=== PATIENT | female | born 1945 | race Caucasian/White ===

== ENCOUNTER 2018-06-27 12:51 | Day surgery (SDC) | payer MEDICARE, OTHER ==
[~2018-06-27 12:51] MED LIST: ALBU90OI61 INH; ASPI81EC PO; ATEN100; ATOR10; Aspirin EC81 MG PO; Benicar40 MG PO; CALCA500CH PO; CARV25 PO; CIPR500 PO; CLARITIN10 MG PO; CYAN500 PO; Coq-1030 MG PO; ESTRADIOL; FISH OIL 1,0001 EAC1 PO; GABA300 PO; GLIP10 PO; Gabapentin600 MG PO; HYDACE5 PO; HYDR1TAB94 PO; INSUASPI; INSULANPEN; INVOKANA300 MG PO; LOSARTAN POTAS100 MG PO; MELA3 PO; METF500; METF500 PO; NAPR250 PO; NAPR500; Nitrostat0.4 MG SL; Novolog100 UNIT/2; OLME20; OLME20 PO; OMEG1CAP30 PO; OMEPRAZOLE MAGN20 MG PO; PROG100; PROM25 PO; Prilosec Otc20 MG PO; ROSI4; RXHYDACE PO; SIMV40 PO; Super Calcium600 MG PO; UBID100 PO; VICTOZA PO; VITAMIN B-125000 MC2 PO; VITAMIN D3 PO; VITAMIN D32000 UNIT PO
--- NOTE | 2018-06-27 14:54 | NUR ---
06/27/18 1454 Rodo Egan LATE ENTRY: PER DR JAY VICENTE FOR PATEINT TO PROCEED WITH NURSE SEDATION. DR ZHANG AWARE OF THIS.
== END 2018-06-27 14:40 | disposition home or self-care (01) ==
LOC: ORSCSDS 12:51
PROVIDERS: Internal Medicine Gastroenterology
PROC: 0DBL8ZX Excision of Transverse Colon, Via Natural or Artificial Opening Endoscopic, Diagnostic (ICD-10-PCS; principal; 2018-06-27 14:15)
PROC: 0DBK8ZX Excision of Ascending Colon, Via Natural or Artificial Opening Endoscopic, Diagnostic (ICD-10-PCS; principal; 2018-06-27 14:15)
DX: Z12.11 Encounter for screening for malignant neoplasm of colon (principal); D12.2 Benign neoplasm of ascending colon; D12.3 Benign neoplasm of transverse colon; K64.8 Other hemorrhoids; J45.909 Unspecified asthma, uncomplicated; G47.33 Obstructive sleep apnea (adult) (pediatric); I10 Essential (primary) hypertension; E11.9 Type 2 diabetes mellitus without complications; K21.9 Gastro-esophageal reflux disease without esophagitis; Z79.899 Other long term (current) drug therapy; Z79.82 Long term (current) use of aspirin
CPT/HCPCS: 82947; 88305; J7120

== ENCOUNTER 2020-04-14 18:32 | Inpatient (IN) | payer OTHER ==
[~2020-04-14] VITALS: Ht 170.2 cm; Wt 68.0 kg
[~2020-04-14 18:32] MED LIST changes: -VITAMIN B-125000 MC2 PO; +Vitamin B-121000 MCG PO
[2020-04-14] MEDS ORDERED: ACET325 PO (19:00)
[2020-04-14] MEDS ORDERED: METF500 PO (19:00)
[2020-04-14] MEDS ORDERED: NOVOLIN 70100 UNIT/3 SC (19:24)
[2020-04-14] MEDS ORDERED: SYMBICORT 16010.2 GM INH (19:25)
[2020-04-14] MEDS ORDERED: OYSTER SHELL 51 EACH PO (19:26)
[2020-04-14 19:46] LABS: PCO2 Arterial 34.9 mmHg (35-45); pH Blood Arterial 7.42 (7.35-7.45)
[2020-04-14 19:48] LABS: Magnesium, Blood 1.3 mg/dL (1.6-2.4)
[2020-04-14 19:50] LABS: Alanine Aminotransfer (ALT/SGP 17 U/L (12-78); Albumin, Blood 2.7 g/dL (3.4-5.0); Albumin/Globulin Ratio 0.6 (0.8-1.8); Alk Phos 116 U/L (50-136); Anion Gap 9 mmol/L (6-16); Aspartate Aminotrans (AST/SGOT 20 U/L (12-37); Bilirubin, Total 0.2 mg/dL (0.1-1.0); Blood Urea Nitrogen 18 mg/dL (8-24); Bun/Creatinine Ratio 20.2 (12.0-20.0); CO2, Blood 22 mmol/L (21-32); Calcium, Blood 9.7 mg/dL (8.5-10.1); Chloride, Blood 106 mmol/L (98-108); Creatinine, Blood 0.89 mg/dL (0.40-1.00); Globulin, Blood 4.6 g/dL (2.2-4.0); Glomerular Filtration Rate >60 (60-); Glucose, Blood 206 mg/dL (70-99); Potassium, Blood 4.2 mmol/L (3.5-5.5); Sodium, Blood 137 mmol/L (136-145); Total Protein, Blood 7.3 g/dL (6.4-8.2)
[2020-04-14 20:47] LABS: Influenza A, PCR Negative (NEGATIVE); Influenza B, PCR Negative (NEGATIVE); Resp Syncytial Virus, PCR Negative (NEGATIVE); SARS-Cov-2 (COVID-19) PCR, MMC Negative (NEGATIVE)
[2020-04-14 21:01] LABS: BASOPHILS ABSOLUTE AUTO 0.03 K/mm3 (0.00-0.23); BASOPHILS PERCENT AUTO 0 % (0-2); EOSINOPHILS ABSOLUTE AUTO 0.34 K/mm3 (0.00-0.68); EOSINOPHILS PERCENT AUTO 5 % (0-6); Hematocrit 35.5 % (33.0-51.0); Hemoglobin 11.2 g/dL (11.5-16.0); IMMATURE GRAN ABSOLUTE AUTO 0.01 K/mm3 (0.00-0.10); IMMATURE GRAN PERCENT AUTO 0 % (0-1); LYMPHOCYTES ABSOLUTE AUTO 1.39 K/mm3 (0.84-5.20); LYMPHOCYTES PERCENT AUTO 20 % (21-46); MONOCYTES ABSOLUTE AUTO 0.73 K/mm3 (0.16-1.47); MONOCYTES PERCENT AUTO 11 % (4-13); Mean Corpuscular HGB 28.9 pg (26.0-34.0); Mean Corpuscular HGB Conc 31.5 g/dL (31.5-36.5); Mean Corpuscular Volume 92 fL (80-100); Mean Platelet Volume 9.2 fL (9.1-12.4); NEUTROPHILS ABSOLUTE AUTO 4.48 K/mm3 (1.96-9.15); NEUTROPHILS PERCENT AUTO 64 % (41-73); Platelet Count 289 K/mm3 (150-400); RDW Coefficient Variation 13.2 % (11.7-14.2); RDW Standard Deviation 44.1 fL (35.1-46.3); Red Blood Cell Count 3.87 M/mm3 (3.80-5.20); White Blood Cell Count 6.98 K/mm3 (4.00-11.30)
[2020-04-14] MEDS ORDERED: NOVOLIN 70100 UNIT/3 (22:23)
[2020-04-15 06:14] LABS: Hematocrit 33.2 % (33.0-51.0); Hemoglobin 10.8 g/dL (11.5-16.0); Mean Corpuscular HGB Conc 32.5 g/dL (31.5-36.5); Mean Corpuscular Volume 89 fL (80-100); Mean Platelet Volume 8.8 fL (9.1-12.4); Platelet Count 287 K/mm3 (150-400); RDW Coefficient Variation 13.1 % (11.7-14.2); RDW Standard Deviation 41.9 fL (35.1-46.3); Red Blood Cell Count 3.73 M/mm3 (3.80-5.20); White Blood Cell Count 8.63 K/mm3 (4.00-11.30)
[2020-04-15 06:35] LABS: Anion Gap 6 mmol/L (6-16); Blood Urea Nitrogen 13 mg/dL (8-24); CO2, Blood 26 mmol/L (21-32); Calcium, Blood 9.9 mg/dL (8.5-10.1); Chloride, Blood 110 mmol/L (98-108); Creatinine, Blood 0.76 mg/dL (0.40-1.00); Glomerular Filtration Rate >60 (60-); Glucose, Blood 147 mg/dL (70-99); Potassium, Blood 4.1 mmol/L (3.5-5.5); Sodium, Blood 142 mmol/L (136-145)
[2020-04-16 14:09] LABS: SARS COV-2 IGG AB Negative (Negative)
[2020-04-16 15:09] LABS: SARS COV-2 IGM AB Negative (Negative)
[2020-04-16] MEDS ORDERED: ATOVAQUONE PO (17:36)
[2020-04-16] MEDS ORDERED: PRED20 PO (17:36)
[2020-04-17 17:10] LABS: ANA DIRECT Negative (Negative)
== END 2020-04-16 18:34 | disposition home or self-care (01) | DRG 193 ==
LOC: ER 18:32 → MEDS 18:33 → ER 22:02 → MEDS 22:07
PROVIDERS: Emergency Medicine; Hospitalist; ADMIT Internal Medicine
DX: J18.9 Pneumonia, unspecified organism (principal); J96.21 Acute and chronic respiratory failure with hypoxia; D64.9 Anemia, unspecified; E11.9 Type 2 diabetes mellitus without complications; I16.0 Hypertensive urgency; E83.42 Hypomagnesemia; J84.89 Other specified interstitial pulmonary diseases; I10 Essential (primary) hypertension; Z20.828 Contact with and (suspected) exposure to other viral communicable diseases; E78.5 Hyperlipidemia, unspecified; Z79.4 Long term (current) use of insulin
CPT/HCPCS: 0241U; 36415; 36600; 71250; 80048; 80053; 82803; 82947; 83605; 83735; 84145; 85025; 85027; 85651; 86140; 86430; 87040; 87426; 87449; 94640; 94760; 94761; 96361; 96365; 96366; 99285-25; A9270; A9270-GY; C9803; J1650; J1815; J3370; J3475; J7030; J7050; J7120

== ENCOUNTER 2021-04-10 14:59 | Emergency (ER) | payer OTHER ==
[~2021-04-10] VITALS: Ht 170.2 cm; Wt 99.8 kg
[~2021-04-10 14:59] MED LIST changes: +ACET325 PO; +ATOVAQUONE PO; +NOVOLIN 70100 UNIT/3; +NOVOLIN 70100 UNIT/3 SC; +OYSTER SHELL 51 EACH PO; +PRED20 PO; +SYMBICORT 16010.2 GM INH
[2021-04-10 16:38] LABS: Source, Urine Clean Catch
[2021-04-10 16:43] LABS: Appearance, Urine Turbid (Clear); Blood, Urine 5+ (Neg); Color, Urine Amber (P-Yellow); Glucose Qualitative, Urine Neg (Neg); Ketones, Urine 1+ (Neg); Leukocyte Esterase, Urine 3+ (Neg); Nitrite, Urine Pos (Neg); Protein, Urine 4+ (Neg); Specific Gravity, Urine 1.025 (1.003-1.022); Urobilinogen, Urine 1+ (Normal)
[2021-04-10 16:55] LABS: Bilirubin, Urine 2+ (Neg)
[2021-04-10 17:02] LABS: Bacteria Many /hpf; Red Blood Cells, Urine TNTC /hpf (0-2); Squamous Epithelial Cells Mod /hpf (Few); White Blood Cells, Urine TNTC /hpf (0-5)
[2021-04-10] MEDS ORDERED: CEPH500 PO (17:12)
== END 2021-04-10 17:30 | disposition home or self-care (01) ==
LOC: ER 14:59
PROVIDERS: Physician Assistant
DX: N39.0 Urinary tract infection, site not specified (principal); I10 Essential (primary) hypertension; E11.9 Type 2 diabetes mellitus without complications; Z88.2 Allergy status to sulfonamides; Z88.0 Allergy status to penicillin; Z79.899 Other long term (current) drug therapy
CPT/HCPCS: 81001; 82947; 87086; 99283; A9270

== ENCOUNTER → 2021-09-30 | Outpatient (CLI) | payer OTHER ==
[~2021-09-30] MED LIST changes: +CEPH500 PO; +ELIQUIS5 M2 PO; +Flecainide Acet50 MG PO; +MYCO250 PO; +NOVOLOG FL100 UNIT/3 SC; +OZEMPIC0.25 MG/0. SC
== END | disposition home or self-care (01) ==
LOC: LAB SHORT 10:54
DX: L03.115 Cellulitis of right lower limb (principal); L03.116 Cellulitis of left lower limb
CPT/HCPCS: 87070; 87077; 87147; 87186; 87205

== ENCOUNTER 2022-02-04 12:19 | Day surgery (SDC) | payer OTHER ==
[~2022-02-04] VITALS: Ht 170.2 cm; Wt 91.1 kg
== END 2022-02-04 16:54 | disposition home or self-care (01) ==
LOC: ORSCSDS 12:19
PROVIDERS: Internal Medicine Gastroenterology
PROC: 0DBM8ZX Excision of Descending Colon, Via Natural or Artificial Opening Endoscopic, Diagnostic (ICD-10-PCS; principal; 2022-02-04 13:45)
PROC: 0DBK8ZX Excision of Ascending Colon, Via Natural or Artificial Opening Endoscopic, Diagnostic (ICD-10-PCS; principal; 2022-02-04 13:45)
PROC: 0DBH8ZX Excision of Cecum, Via Natural or Artificial Opening Endoscopic, Diagnostic (ICD-10-PCS; principal; 2022-02-04 13:45)
PROC: 0DBL8ZX Excision of Transverse Colon, Via Natural or Artificial Opening Endoscopic, Diagnostic (ICD-10-PCS; principal; 2022-02-04 13:45)
DX: Z12.11 Encounter for screening for malignant neoplasm of colon (principal); D12.0 Benign neoplasm of cecum; D12.2 Benign neoplasm of ascending colon; D12.3 Benign neoplasm of transverse colon; D12.4 Benign neoplasm of descending colon; Z86.010 Personal history of colon polyps; G47.33 Obstructive sleep apnea (adult) (pediatric); I48.91 Unspecified atrial fibrillation; J45.909 Unspecified asthma, uncomplicated; E11.22 Type 2 diabetes mellitus with diabetic chronic kidney disease; I12.9 Hypertensive chronic kidney disease with stage 1 through stage 4 chronic kidney disease, or unspecified chronic kidney disease; N18.30 Chronic kidney disease, stage 3 unspecified; K21.9 Gastro-esophageal reflux disease without esophagitis; Z79.01 Long term (current) use of anticoagulants; Z79.82 Long term (current) use of aspirin; Z79.84 Long term (current) use of oral hypoglycemic drugs; Z79.4 Long term (current) use of insulin; Z79.51 Long term (current) use of inhaled steroids; Z79.899 Other long term (current) drug therapy
CPT/HCPCS: 82947; 88305; J0330; J0461; J2405; J2704; J7120

== ENCOUNTER 2022-08-01 06:50 | Inpatient (IN) | payer OTHER ==
[~2022-08-01] VITALS: Ht 170.2 cm; Wt 89.3 kg
[2022-08-01 07:22] LABS: Source, Urine Clean Catch
[2022-08-01 07:29] LABS: Bilirubin, Urine Neg (Neg); Blood, Urine 3+ (Neg); Glucose Qualitative, Urine 4+ (Neg); Ketones, Urine 3+ (Neg); Leukocyte Esterase, Urine 2+ (Neg); Nitrite, Urine Neg (Neg); Protein, Urine 3+ (Neg); Urobilinogen, Urine NORM (Normal); pH, Urine 6.5 (5.0-8.0)
[2022-08-01 07:43] LABS: Albumin, Blood 4.3 g/dL (3.4-5.0); Albumin/Globulin Ratio 1.3 (0.8-1.8); Bilirubin, Total 0.6 mg/dL (0.1-1.0); Bun/Creatinine Ratio 20.5 (12.0-20.0); Calcium, Blood 9.9 mg/dL (8.5-10.1); Creatinine, Blood 0.83 mg/dL (0.40-1.00); Globulin, Blood 3.4 g/dL (2.2-4.0); Total Protein, Blood 7.7 g/dL (6.4-8.2)
[2022-08-01 07:44] LABS: Appearance, Urine Hazy (Clear); Color, Urine Yellow (P-Yellow)
[2022-08-01 07:47] LABS: Bacteria Mod /hpf; Mucus Mod (0-Heavy); Squamous Epithelial Cells Few /hpf (Few)
[2022-08-01 08:03] LABS: BASOPHILS ABSOLUTE AUTO 0.06 K/mm3 (0.00-0.23); BASOPHILS PERCENT AUTO 0 % (0-2); EOSINOPHILS ABSOLUTE AUTO 0.01 K/mm3 (0.00-0.68); EOSINOPHILS PERCENT AUTO 0 % (0-6); Hematocrit 35.2 % (33.0-51.0); IMMATURE GRAN ABSOLUTE AUTO 0.04 K/mm3 (0.00-0.10); IMMATURE GRAN PERCENT AUTO 0 % (0-1); LYMPHOCYTES ABSOLUTE AUTO 0.96 K/mm3 (0.84-5.20); LYMPHOCYTES PERCENT AUTO 6 % (21-46); MONOCYTES ABSOLUTE AUTO 0.55 K/mm3 (0.16-1.47); MONOCYTES PERCENT AUTO 4 % (4-13); Mean Corpuscular HGB 25.5 pg (26.0-34.0); Mean Corpuscular HGB Conc 31.3 g/dL (31.5-36.5); Mean Corpuscular Volume 82 fL (80-100); Mean Platelet Volume 9.9 fL (9.1-12.4); NEUTROPHILS ABSOLUTE AUTO 13.49 K/mm3 (1.96-9.15); NEUTROPHILS PERCENT AUTO 89 % (41-73); Platelet Count 286 K/mm3 (150-400); RDW Coefficient Variation 14.4 % (11.7-14.2); Red Blood Cell Count 4.32 M/mm3 (3.80-5.20); White Blood Cell Count 15.11 K/mm3 (4.00-11.30)
[2022-08-01 09:48] LABS: U Amphetamine Screen Not Detected; U Barbituate Screen Not Detected; U Benzodiazapine Screen Not Detected; U Buprenorphine Screen Not Detected; U Cannabinoids Screen Not Detected; U Cocaine Screen Not Detected; U Methadone Screen Not Detected; U Methamphetamine Screen Not Detected; U Opiates Screen Not Detected; U Oxycodone Screen Not Detected; U Phencyclidine Screen Not Detected; U Propoxyphene Screen Not Detected
[2022-08-01 12:00] VITALS: BP 172/68
[2022-08-01] MEDS ORDERED: ELIQUIS5 M2 PO (12:45)
[2022-08-01] MEDS ORDERED: Flecainide Acet50 MG PO (12:45)
[2022-08-01] MEDS ORDERED: CARV6.25 PO (12:45)
[2022-08-01] MEDS ORDERED: GABA100 PO (12:46)
[2022-08-01] MEDS ORDERED: METF500 PO (12:47)
[2022-08-01] MEDS ORDERED: OMEP20ER PO (12:47)
[2022-08-01] MEDS ORDERED: MYCO250 PO (12:47)
[2022-08-01] MEDS ORDERED: INSULANI SC (12:47)
[2022-08-01] MEDS ORDERED: OZEMPIC0.25 MG/01 SC (12:48)
[2022-08-01] MEDS ORDERED: ZOCOR20 MG PO (12:49)
[2022-08-01] MEDS ORDERED: INSULANPEN SC (12:49)
[2022-08-01 14:12] LABS: Anti-Xa UFH, PHA Monitoring 0.6 IU/mL; International Normalized Ratio 1.04; Prothrombin Time Results 10.9 Sec (9.7-11.5)
[2022-08-01 15:00] VITALS: BP 173/60
[2022-08-01 16:00] VITALS: BP 160/79
--- NOTE | 2022-08-01 17:41 | NUR ---
SHIFT SUMMARY; ASSUMED CARE FROM ED. CURLED UP ON SIDE IN POSITION. OPENS EYES TO VERBAL STIMULI AND MOANS WHEN TOUCHED. PUREWICK IN PLACE, NS INFUSING AT 200ML/HR X2 BAGS, FAMILY AT BEDSIDE. HEPARIN STARTED PER ORDERS INFUSING AT 15UNITS/KG. ECHO COMPLETED. WAKES EASIER TO VERBAL STIMULI LATE IN SHIFT. ABLE TO ANSWER QUESTIONS. STATES IS AT [facility] AND FELL LAST NIGHT, DIFFICULTY CONCENTRATING. BED ALARM ON, SIDE RAILS X3 UP FOR SAFTEY. WILL CONTINUE TO MONITOR AND TREAT UNTIL CHANGE OF SHIFT.
[2022-08-01 19:31] VITALS: BP 130/97
[2022-08-01 23:23] VITALS: BP 158/65
[2022-08-02] VITALS (9 sets, daily range): BP systolic 115–178; BP diastolic 43–129
[2022-08-02 04:33] LABS: BASOPHILS ABSOLUTE AUTO 0.04 K/mm3 (0.00-0.23); BASOPHILS PERCENT AUTO 0 % (0-2); EOSINOPHILS ABSOLUTE AUTO 0.01 K/mm3 (0.00-0.68); EOSINOPHILS PERCENT AUTO 0 % (0-6); Hematocrit 34.1 % (33.0-51.0); Hemoglobin 10.4 g/dL (11.5-16.0); IMMATURE GRAN ABSOLUTE AUTO 0.08 K/mm3 (0.00-0.10); IMMATURE GRAN PERCENT AUTO 1 % (0-1); LYMPHOCYTES ABSOLUTE AUTO 1.11 K/mm3 (0.84-5.20); LYMPHOCYTES PERCENT AUTO 6 % (21-46); MONOCYTES ABSOLUTE AUTO 0.94 K/mm3 (0.16-1.47); MONOCYTES PERCENT AUTO 5 % (4-13); Mean Corpuscular HGB 25.3 pg (26.0-34.0); Mean Corpuscular HGB Conc 30.5 g/dL (31.5-36.5); Mean Corpuscular Volume 83 fL (80-100); NEUTROPHILS ABSOLUTE AUTO 15.57 K/mm3 (1.96-9.15); NEUTROPHILS PERCENT AUTO 88 % (41-73); Platelet Count 285 K/mm3 (150-400); RDW Coefficient Variation 14.6 % (11.7-14.2); RDW Standard Deviation 43.6 fL (35.1-46.3); Red Blood Cell Count 4.11 M/mm3 (3.80-5.20); White Blood Cell Count 17.75 K/mm3 (4.00-11.30)
[2022-08-02 04:55] LABS: Calcium, Blood 8.8 mg/dL (8.5-10.1); Creatinine, Blood 0.83 mg/dL (0.40-1.00)
--- NOTE | 2022-08-02 06:16 | NUR ---
SHIFT SUMMARY PT IS A&OX4, BUT LETHARGIC. SHE CAN BE WOKEN UP AND ANSWERS EVERY QUESTION APPROPRIATELY BUT SHE DOES NOT STAY AWAKE LONG, IS SLOW TO RESPOND, AND CAN NOT EXPRESS HER NEEDS WITHOUT BEING ASKED. PT WAS HAVING SOME N/V THIS SHIFT AND WAS MEDICATED WITH REGLAN. SHE HAS NOT HAD ANY VOMITING SINCE. SHE C/O NAUSEA ONCE SINCE BEING MEDICATED. SHE HAS HAD ONE SMALL LOOSE STOOL AND HAS A PURWICK USED FOR HER INC VOIDS. PT HAS BEEN SLEEPING MAJORITY OF THE SHIFT AND HAS BEEN HYPERTENSIVE. THIS SHIFT SHE STARTED HAVING MORE RUNS OF BIGEMENY AND TRIGEMENY. TROPONINS ARE STILL TRENDING UP AND HAVE NOT PEAKED. SHE IS ON RA AND DENIES ANY SOB. SHE HAS A LOW GRADE FEVER AND HAD BEEN GETTING COOL RAGS, ICE PACKS, NO BLANKETS, AND A FAN BLOWING ON HER. BED ALARM ON, CALL LIGHT IN REACH, AND BED IN LOW. SEE NOTES FOR ANY UPDATES.
[2022-08-02 11:19] LABS: Base Excess Venous -2.8 mmol/L; Bicarbonate Venous 22.5 mmol/L (24.0-30.0); PCO2 Venous 33.5 mmHg (38-42); pH Blood Venous 7.42 (7.34-7.37)
[2022-08-02 13:09] LABS: Adenovirus Not Detected (NOT DETECT); Bordetella pertussis Not Detected (NOT DETECT); Chlamydophila pneumoniae Not Detected (NOT DETECT); Coronavirus 229E Not Detected (NOT DETECT); Coronavirus HKU1 Not Detected (NOT DETECT); Coronavirus NL63 Not Detected (NOT DETECT); Coronavirus OC43 Not Detected (NOT DETECT); Human Metapneumovirus Not Detected (NOT DETECT); Human Rhinovirus/Enterovirus Not Detected (NOT DETECT); Influenza A/2009-H1 Not Detected (NOT DETECT); Influenza A/H1 Not Detected (NOT DETECT); Influenza A/H3 Not Detected (NOT DETECT); Influenza B Not Detected (NOT DETECT); Mycoplasma pneumoniae Not Detected (NOT DETECT); Parainfluenza Virus 1 Not Detected (NOT DETECT); Parainfluenza Virus 2 Not Detected (NOT DETECT); Parainfluenza Virus 3 Not Detected (NOT DETECT); Parainfluenza Virus 4 Not Detected (NOT DETECT); Respiratory Syncytial Virus Not Detected (NOT DETECT); SARS-Cov-2 (COVID-19), BioFire Not Detected (NOT DETECT)
[2022-08-02 13:58] LABS: Source, Urine Foley catheter
[2022-08-02 14:04] LABS: Appearance, Urine Hazy (Clear); Bilirubin, Urine Neg (Neg); Blood, Urine 5+ (Neg); Color, Urine Yellow (P-Yellow); Glucose Qualitative, Urine 4+ (Neg); Ketones, Urine 2+ (Neg); Leukocyte Esterase, Urine Neg (Neg); Nitrite, Urine Neg (Neg); Protein, Urine 3+ (Neg); Specific Gravity, Urine 1.025 (1.003-1.022); Urobilinogen, Urine NORM (Normal)
[2022-08-02 14:29] LABS: Free Thyroxine 1.17 ng/dL (0.70-1.60)
[2022-08-02 14:31] LABS: Triiodothyronine, Free 1.51 pg/mL (2.18-3.98)
[2022-08-02 15:20] LABS: Amorphous Light (0-Heavy); Bacteria Many /hpf; Hyaline Casts 0-2 /lpf (0-2); Mucus Light (0-Heavy); Red Blood Cells, Urine TNTC /hpf (0-2); Squamous Epithelial Cells Rare /hpf (Few); White Blood Cells, Urine 0-2 /hpf (0-5)
--- NOTE | 2022-08-02 17:22 | NUR ---
SHIFT SUMMARY; ASSUMED CARE AT 0700. LETHARGIC AND DIFFICULT TO ARROUSE DURING SHIFT. DOES NOT FOLLOW INSTRUCTIONS, WHEN ASKED TO RAISE LEFT ARM RAISES RIGHT. MRI AND CTA TODAY. WAKES AT TIMES OFF AND ON AND ANSWERS SOME QUESTIONS, WHEN ASKED IF CAN STATE NAME SAYS "NO". ELI PLACED TODAY. HEPARIN INFUSING AT 15UNITS/KG. EVALUATED BY CARDIOLOGY TODAY. PO MEDS GIVEN IN AM CRUSHED IN APPLESAUCE, UNABLE TO GIVE PO THE REST OF DAY, WILL NOT FOLLOW INSTRUCTIONS TO SWALLOW. ATTEMPTED TO BE EVALUATED BY SPEECH THERAPY, WILL NOT COOPERATE WITH EVAL. NPO UNTIL CAN STAY AWAKE FOR EVALUATION. MOVES LEGS AND ARMS WHEN SLEEPING BUT WILL NOT FOR ASSESMENT. Q2 TURNS, 1L 02 VIA NC, INSULIN PER EMAR. WILL CONTINUE TO MONITOR AND TREAT UNTIL CHANGE OF SHIFT.
[2022-08-03 03:27] VITALS: BP 125/56
--- NOTE | 2022-08-03 06:13 | NUR ---
SHIFT SUMMARY PT IS A&OX4, VERY WITHDRAWN, AND HAS TO BE PRESSED TO COMMUNICATE. SHE IS SLOW TO RESPOND, SHORT WITH HER PHRASES, AND SOFTLY SPOKEN. SHE ANSWERS QUESTIONS APPROPRIATELY AND HAS NOT USED HER CALL LIGHT TO EXPRESS CONCERNS. THE PT IS A Q2 HR TURN, HAS A ELI DRAINING TO GRAVITY, AND HAS BEEN INC OF BOWEL. PT IS ON ROOM AIR W/ SP02>90% AND SHE DENIES SOB. ON TELE THE PT IS SR 70 S-80 S W/ PVC S AND SHE DENIES ANY CHEST PAIN. SHE HAS BEEN FIGHTING A LOW GRADE FEVER AND WAS GIVEN TYLENOL. PT IS ON CENTRAL MONITORING, HAS THE BED ALARM ON, THREE SIDE RAILS UP, BED IS IN LOW, AND CALL LIGHT IS IN REACH. I WILL CONTINUE TO MONITOR UNTIL SHIFT REPORT IS GIVEN TO THE ONCOMING SHIFT RN. SEE NOTES FOR ANY UPDATES.
[2022-08-03 07:30] VITALS: BP 111/46
[2022-08-03 07:57] LABS: BASOPHILS ABSOLUTE AUTO 0.05 K/mm3 (0.00-0.23); BASOPHILS PERCENT AUTO 1 % (0-2); EOSINOPHILS ABSOLUTE AUTO 0.12 K/mm3 (0.00-0.68); EOSINOPHILS PERCENT AUTO 1 % (0-6); Hematocrit 27.9 % (33.0-51.0); Hemoglobin 8.9 g/dL (11.5-16.0); IMMATURE GRAN ABSOLUTE AUTO 0.04 K/mm3 (0.00-0.10); IMMATURE GRAN PERCENT AUTO 0 % (0-1); LYMPHOCYTES ABSOLUTE AUTO 2.49 K/mm3 (0.84-5.20); LYMPHOCYTES PERCENT AUTO 23 % (21-46); MONOCYTES ABSOLUTE AUTO 1.04 K/mm3 (0.16-1.47); MONOCYTES PERCENT AUTO 10 % (4-13); Mean Corpuscular HGB 25.9 pg (26.0-34.0); Mean Corpuscular HGB Conc 31.9 g/dL (31.5-36.5); Mean Corpuscular Volume 81 fL (80-100); Mean Platelet Volume 10.5 fL (9.1-12.4); NEUTROPHILS ABSOLUTE AUTO 7.24 K/mm3 (1.96-9.15); NEUTROPHILS PERCENT AUTO 66 % (41-73); Platelet Count 242 K/mm3 (150-400); RDW Coefficient Variation 14.8 % (11.7-14.2); Red Blood Cell Count 3.43 M/mm3 (3.80-5.20); White Blood Cell Count 10.98 K/mm3 (4.00-11.30)
[2022-08-03 08:22] LABS: Bun/Creatinine Ratio 26.2 (12.0-20.0); Calcium, Blood 8.7 mg/dL (8.5-10.1); Creatinine, Blood 1.26 mg/dL (0.40-1.00); Potassium, Blood 3.2 mmol/L (3.5-5.5)
[2022-08-03 09:23] LABS: BASOPHILS ABSOLUTE AUTO 0.04 K/mm3 (0.00-0.23); BASOPHILS PERCENT AUTO 0 % (0-2); EOSINOPHILS ABSOLUTE AUTO 0.15 K/mm3 (0.00-0.68); EOSINOPHILS PERCENT AUTO 1 % (0-6); Hematocrit 28.3 % (33.0-51.0); Hemoglobin 8.8 g/dL (11.5-16.0); IMMATURE GRAN ABSOLUTE AUTO 0.05 K/mm3 (0.00-0.10); IMMATURE GRAN PERCENT AUTO 1 % (0-1); LYMPHOCYTES PERCENT AUTO 19 % (21-46); MONOCYTES ABSOLUTE AUTO 1.12 K/mm3 (0.16-1.47); MONOCYTES PERCENT AUTO 10 % (4-13); Mean Corpuscular HGB 25.2 pg (26.0-34.0); Mean Corpuscular HGB Conc 31.1 g/dL (31.5-36.5); Mean Corpuscular Volume 81 fL (80-100); Mean Platelet Volume 10.3 fL (9.1-12.4); NEUTROPHILS ABSOLUTE AUTO 7.59 K/mm3 (1.96-9.15); NEUTROPHILS PERCENT AUTO 69 % (41-73); Platelet Count 247 K/mm3 (150-400); RDW Coefficient Variation 14.7 % (11.7-14.2); RDW Standard Deviation 42.2 fL (35.1-46.3); Red Blood Cell Count 3.49 M/mm3 (3.80-5.20); White Blood Cell Count 11.05 K/mm3 (4.00-11.30)
--- NOTE | 2022-08-03 09:55 | NUR ---
AM NOTES: PT WAS MORE ALERT AND RESPONSIVE TODAY PER FAMILY AT THE BEDSIDE. PT WAS ABLE TO COOPERATIVE WITH SPEECH THERAPIST DIET RESUMED TO REGULAR THIN LIQUIDS, ABLE TO TAKE PILLS WHOLE WITH WATER. PT STILL SLOW TO RESPOND CONVERSIVE BUT CAN GET FIXATED ON THINGS MOSTLY TO HER RIGHT SIDE. VITALS STABLE. PT DENIES ANY CHEST PAIN/PRESSURE. REPOSITIONED FOR COMFORT. TO DC ELI TODAY PER DR ERNANDEZ. NO ISSUES AT THIS TIME, WILL CONTINUE TO MONITOR
[2022-08-03 11:36] VITALS: BP 100/45; BP 98/47
[2022-08-03 16:12] VITALS: BP 103/50
--- NOTE | 2022-08-03 18:37 | NUR ---
PT SUMMARY: SEE PREVIOUS NOTE. NO ACUTE CHANGE FOR THE REST OF THE SHIFT. PT HAS BEEN CONSISTENTLY ALERT AND TALKING WITH THE FAMILY AT THE BEDSIDE PT COULDNT REMEMBER MUCH OF WHAT HAPPENED YESTERDAY BUT SHE KNOWS SHE WAS OUT OF IT. PT DENIES ANY CHEST PAIN/PRESSURE, VITALS STABLE. HAS SOME DISCOMFORT FROM LAYING IN BED REPOSITIONED FOR COMFORT. PT HAS BEEN TOLERATING DIET FEEDING HERSELF WITH NO ISSUES. BED BATH PROVIDED FOR THE SHIFT, ELI WAS DISCONTINUED PUREWICK IN PLACE. DR CABRERA CAME BY TO RE EVAL PT, WOULD LIKE TO WAIT ANOTHER DAY OR TWO UNTIL PT TOTALLY CLEARS UP FROM INFECTION THEN RE EVAL AGAIN FOR ANGIO. FAMILY IS AWARE OF THE PLAN OF CARE. HEP GTT INCREASED TO 15U/KG/HR. NO OTHER ISSUES ENCOUNTERED. CALL LIGHTS IN REACH WILL REPORT TO ONCOMING SHIFT
[2022-08-03 21:31] VITALS: BP 117/65
[2022-08-04] VITALS (7 sets, daily range): BP systolic 124–159; BP diastolic 36–62
[2022-08-04 06:20] LABS: BASOPHILS ABSOLUTE AUTO 0.03 K/mm3 (0.00-0.23); BASOPHILS PERCENT AUTO 0 % (0-2); EOSINOPHILS ABSOLUTE AUTO 0.21 K/mm3 (0.00-0.68); EOSINOPHILS PERCENT AUTO 3 % (0-6); Hematocrit 27.3 % (33.0-51.0); Hemoglobin 8.5 g/dL (11.5-16.0); IMMATURE GRAN ABSOLUTE AUTO 0.02 K/mm3 (0.00-0.10); IMMATURE GRAN PERCENT AUTO 0 % (0-1); LYMPHOCYTES ABSOLUTE AUTO 1.45 K/mm3 (0.84-5.20); LYMPHOCYTES PERCENT AUTO 20 % (21-46); MONOCYTES PERCENT AUTO 11 % (4-13); Mean Corpuscular HGB 25.7 pg (26.0-34.0); Mean Corpuscular HGB Conc 31.1 g/dL (31.5-36.5); Mean Corpuscular Volume 83 fL (80-100); Mean Platelet Volume 10.4 fL (9.1-12.4); NEUTROPHILS ABSOLUTE AUTO 4.88 K/mm3 (1.96-9.15); NEUTROPHILS PERCENT AUTO 66 % (41-73); Platelet Count 229 K/mm3 (150-400); RDW Coefficient Variation 14.7 % (11.7-14.2); RDW Standard Deviation 43.2 fL (35.1-46.3); Red Blood Cell Count 3.31 M/mm3 (3.80-5.20); White Blood Cell Count 7.39 K/mm3 (4.00-11.30)
[2022-08-04 06:35] LABS: Bun/Creatinine Ratio 28.1 (12.0-20.0); Calcium, Blood 8.7 mg/dL (8.5-10.1); Creatinine, Blood 1.21 mg/dL (0.40-1.00); Potassium, Blood 3.5 mmol/L (3.5-5.5)
--- NOTE | 2022-08-04 06:56 | NUR ---
SHIFT SUMMARY PATIENT ALERT AND ORIENTED X 3-4. HAD OCCASIONAL CONUSION AND FORGETFULNESS OVERNIGHT BUT WAS ABLE TO ANSWER ALL ORIENTATION QUESTIONS APPROPRIATELY AND KNEW WHAT MEDICATIONS SHE TYPICALLY TOOK AT HOME. VITAL SIGNS STABLE, PATIENT ON ROOM AIR, SINUS ON TELE. PATIENT DID NOT VOID OVERNIGHT, BLADDER SCAN SHOWED 901 ML. PATIENT STATED THAT SHE FELT LIKE SHE NEEDED TO URINATE AND WANTED SOME TIME TO TRY BEFORE BEING STRAIGHT CATHED. WILL CONTINUE TO MONITOR. CALL LIGHT WITHIN REACH.
--- NOTE | 2022-08-04 13:07 | NUR ---
Patient is lying in bed and alert. Patient's spouse, Alejandro, is bedside and helps fill in details for the patient as she shares about their solid friend, family and L[employer] rao support. They explain about all the prayers and encouragent they recieved since her hospital stay began. They are friendly and embossed or impressed lettering painter conversation and are easily encouraged by the conversations centered around their rao and prayer. I provide both as well and gentle employee counselor, regarding emotionl/mental/spiritual coping strategies for dealing with medical issues. I will continue to remain avaialble to pateint and family.
--- NOTE | 2022-08-04 18:23 | NUR ---
SHIFT SUMMARY ASSUMED CARE OF PT AT 0700 THIS AM. BLADDER SCAN FOR >1000ML, DR ERNANDEZ AT BEDSIDE. PT ST. CATH FOR 1100ML. PT WORKED WITH PT/OT, ABLE TO WALK FROM BED TO DOOR WITH FWW. PT UNABLE TO VOID MORE THAN 100ML AT A TIME ON BSC. BLADDER SCAN THIS EVENING 607ML, DR LOERA NOTIFIED AND NEW ORDERS RECEIVED. SEE DOCUMENTED VS AND ASSESSMENT. PLAN TO DC IN THENEXT 24 HRS TO SNF. PT'S SPOUSE AT BEDSIDE TODAY AND UPDATED ON PT'S CONDITION AND CARE PLAN. PT ABLE TO USE CALL LIGHT FOR NEEDS, CALL LIGHT IN REACH, WILL CONTINUE TO MONITOR AND GIVE REPORT TO NOC SHIFT RN.
[2022-08-04 22:49] LABS: Source, Urine Foley catheter
[2022-08-04 23:06] LABS: Bilirubin, Urine Neg (Neg); Blood, Urine 4+ (Neg); Glucose Qualitative, Urine 2+ (Neg); Ketones, Urine Neg (Neg); Leukocyte Esterase, Urine Neg (Neg); Nitrite, Urine Neg (Neg); Protein, Urine Neg (Neg); Specific Gravity, Urine 1.015 (1.003-1.022); Urobilinogen, Urine NORM (Normal)
[2022-08-04 23:12] LABS: Color, Urine Pale Yellow (P-Yellow)
[2022-08-04 23:13] LABS: Appearance, Urine Hazy (Clear); Bacteria Mod /hpf; Mucus Light (0-Heavy); Squamous Epithelial Cells Rare /hpf (Few); White Blood Cells, Urine 0-2 /hpf (0-5)
[2022-08-05 03:20] VITALS: BP 161/62
[2022-08-05 03:39] LABS: BASOPHILS ABSOLUTE AUTO 0.04 K/mm3 (0.00-0.23); BASOPHILS PERCENT AUTO 1 % (0-2); EOSINOPHILS PERCENT AUTO 3 % (0-6); Hematocrit 27.6 % (33.0-51.0); Hemoglobin 8.7 g/dL (11.5-16.0); IMMATURE GRAN ABSOLUTE AUTO 0.02 K/mm3 (0.00-0.10); IMMATURE GRAN PERCENT AUTO 0 % (0-1); LYMPHOCYTES ABSOLUTE AUTO 1.37 K/mm3 (0.84-5.20); LYMPHOCYTES PERCENT AUTO 19 % (21-46); MONOCYTES ABSOLUTE AUTO 0.85 K/mm3 (0.16-1.47); MONOCYTES PERCENT AUTO 12 % (4-13); Mean Corpuscular HGB 25.9 pg (26.0-34.0); Mean Corpuscular HGB Conc 31.5 g/dL (31.5-36.5); Mean Corpuscular Volume 82 fL (80-100); Mean Platelet Volume 10.2 fL (9.1-12.4); NEUTROPHILS ABSOLUTE AUTO 4.68 K/mm3 (1.96-9.15); NEUTROPHILS PERCENT AUTO 65 % (41-73); Platelet Count 229 K/mm3 (150-400); RDW Coefficient Variation 14.9 % (11.7-14.2); RDW Standard Deviation 43.7 fL (35.1-46.3); Red Blood Cell Count 3.36 M/mm3 (3.80-5.20); White Blood Cell Count 7.16 K/mm3 (4.00-11.30)
[2022-08-05 04:03] LABS: Bun/Creatinine Ratio 27.2 (12.0-20.0); Calcium, Blood 9.3 mg/dL (8.5-10.1); Creatinine, Blood 0.92 mg/dL (0.40-1.00); Potassium, Blood 3.8 mmol/L (3.5-5.5)
--- NOTE | 2022-08-05 06:05 | NUR ---
SHIFT SUMMARY PATIENT ALERT AND OREINTED X3-4, OCCASIONALLY CONFUSED AND FORGETFUL. SHE HAS HAD NO COMPLAINTS OF PAIN OR SHORTNESS OF BREATH. VITAL SIGNS STABLE. PATIENT SINUS RHYTHM WITH PVCS ON TELEMETRY. PATIENT CONTINUED TO HAVE SIGNIFICANT URINARY RETENTION. AFTER VOIDING 150, A POST VOID BLADDER SCAN SHOWED 888 STILL IN THE BLADDER, GOLEY CATHETER WAS INSERTED A RESULT. NO OTHER ACUTE ISSUES NOTED OVERNIGHT. CALL LIGHT WITHIN REACH.
[2022-08-05 07:45] VITALS: BP 166/67
[2022-08-05 08:26] VITALS: BP 131/86
[2022-08-05] MEDS ORDERED: VISBIOME 112.51 EACH PO (10:11)
[2022-08-05] MEDS ORDERED: ASPI81CH (10:11)
[2022-08-05 11:08] LABS: SARS-Cov-2 (COVID-19) PCR, MMC Negative (NEGATIVE)
[2022-08-05 11:30] VITALS: BP 146/63
--- NOTE | 2022-08-05 13:26 | NUR ---
DISCHARGE NOTE: PT A&OX4 WITH PERIODS OF CONFUSION. CALM AND COOPERATIVE WITH CARE. PT UP IN CHAIR FOR BREAKFASTS. PT BRUSHED HER TEETH AFTER BREAKFAST. LUNG SOUNDS CLEAR BUT DIMINISHED. PT SOB UPON EXERTION. PT DENIED CHEST PAIN/PRESSURE. HR SR 60'S-80'S. VITALS STABLE. PT STATED NO BOWEL MOVEMENT FOR A WEEK, STATED THAT WAS NORMAL FOR HER. PT STATED LOWER ABD WAS TENDER. NEW ORDERS WERE PLACED FOR MIRILAX AND GIVEN PER ORDER. ELI PLACED LAST NIGHT DUE TO RETENTION. PT DISCHARGED TO [facility] WITH ELI IN PLACE. SUSAN AREA CONTINUED TO BE RED, SWOLLEN, AND IRRITATED WITH WHITE PATCHES IT WAS NOTED BEFORE ELI PLACEMENT. PT'S AND SON VISITED WITH PT SHE WAS GETTING DISCHARGED TO [facility]. SUKHDEV SMITH RN GAVE REPORT TO [facility]. PT LEFT WITH [facility]ONGINGS VIA WHEELCHAR W/TRANSPORT.
--- NOTE | 2022-08-05 13:37 | NUR ---
THIS RN HAS REVIEWED AND AGREES WITH ALL STUDENT CHARTING/DOCUMENTATION. PATIENT AND FAMILY WERE INFORMED AND EDUCATED PRIOR TO LEAVING ON MEDICATIONS, AND FOLLOW UP APPOINTMENTS WITH PCP, CARDIOLOGY AND UROLOGY. THIS RN CALLD REPORT TO PASCALE FROM [facility]. PATIENT LEFT VIA WHEELCHAIR TRANSPORT. FAMILY AT BEDSIDE UPON TRANSPORT.
== END 2022-08-05 12:06 | DRG 871 ==
LOC: ER 06:50 → MEDS 06:51 → PCU 11:52
PROVIDERS: Emergency Medicine; Family Medicine; Student in an Organized Health Care Education/Training Program; ADMIT Hospitalist
PROC: 3E03329 Introduction of Other Anti-infective into Peripheral Vein, Percutaneous Approach (ICD-10-PCS; principal; 2022-08-02)
PROC: 0T9B70Z Drainage of Bladder with Drainage Device, Via Natural or Artificial Opening (ICD-10-PCS; 2022-08-02)
PROC: 5A09357 Assistance with Respiratory Ventilation, Less than 24 Consecutive Hours, Continuous Positive Airway Pressure (ICD-10-PCS; 2022-08-02)
DX: A41.51 Sepsis due to Escherichia coli [E. coli] (principal); G92.8 Other toxic encephalopathy; I21.A1 Myocardial infarction type 2; I16.1 Hypertensive emergency; N17.9 Acute kidney failure, unspecified; N13.6 Pyonephrosis; I67.4 Hypertensive encephalopathy; J84.9 Interstitial pulmonary disease, unspecified; Z66 Do not resuscitate; R65.20 Severe sepsis without septic shock; E78.00 Pure hypercholesterolemia, unspecified; J44.9 Chronic obstructive pulmonary disease, unspecified; G47.33 Obstructive sleep apnea (adult) (pediatric); D64.9 Anemia, unspecified; I10 Essential (primary) hypertension; E11.65 Type 2 diabetes mellitus with hyperglycemia; I48.0 Paroxysmal atrial fibrillation; M54.6 Pain in thoracic spine; M54.2 Cervicalgia; E04.9 Nontoxic goiter, unspecified; R29.6 Repeated falls; R33.9 Retention of urine, unspecified; I16.0 Hypertensive urgency; E87.6 Hypokalemia; W18.30XA Fall on same level, unspecified, initial encounter; Z20.822 Contact with and (suspected) exposure to COVID-19; Z79.82 Long term (current) use of aspirin; Z79.51 Long term (current) use of inhaled steroids; Z79.4 Long term (current) use of insulin; Z79.01 Long term (current) use of anticoagulants; Z98.890 Other specified postprocedural states; Z88.0 Allergy status to penicillin; Z88.2 Allergy status to sulfonamides; Z88.1 Allergy status to other antibiotic agents; Z79.899 Other long term (current) drug therapy; Z79.84 Long term (current) use of oral hypoglycemic drugs; Z86.79 Personal history of other diseases of the circulatory system; Z86.010 Personal history of colon polyps; Z99.89 Dependence on other enabling machines and devices
CPT/HCPCS: 0202U; 36415; 51702; 70450; 70551; 71045; 71275; 72125; 74174; 80048; 80053; 81001; 82803; 82947; 83605; 84439; 84443; 84481; 84484; 85025; 85520; 85610; 85730; 87040; 87077; 87086; 87186; 92526; 92610; 93005; 93010; 93306; 94762; 96365-59; 96375; 96375-59; 96376; 97110; 97116; 97162; 97166; 97530; 97535; 99285-25; A9270; G0378; J0696; J1644; J1815; J2405; J2765; J7030; J7517; Q9967; U0004

== ENCOUNTER → 2022-12-06 | Outpatient (CLI) | payer OTHER ==
[~2022-12-06] MED LIST changes: +ASPI81CH; +CARV6.25 PO; +GABA100 PO; +INSULANI SC; +INSULANPEN SC; +OMEP20ER PO; +OZEMPIC0.25 MG/01 SC; +VISBIOME 112.51 EACH PO; +ZOCOR20 MG PO
== END | disposition home or self-care (01) ==
LOC: LAB 14:56 → LAB SHORT 14:56
DX: N39.0 Urinary tract infection, site not specified (principal)
CPT/HCPCS: 87086

== ENCOUNTER → 2023-01-02 | Outpatient (CLI) | payer OTHER ==
[2023-01-02 20:05] LABS: Microalb/Creat Ratio UR, Rand 17.664 mg/g (0.000-30.000); Microalbumin, Random Urine 37.8 mg/L (0.000-20.000)
[2023-01-02 20:49] LABS: Free Thyroxine 1.05 ng/dL (0.70-1.60)
[2023-01-02 20:51] LABS: Thyroid Stimulating Hormone 0.201 uIU/mL (0.360-4.800)
== END | disposition home or self-care (01) ==
LOC: LAB SHORT 18:57 → LAB 18:57
PROVIDERS: Student in an Organized Health Care Education/Training Program
DX: E11.9 Type 2 diabetes mellitus without complications (principal); E05.90 Thyrotoxicosis, unspecified without thyrotoxic crisis or storm
CPT/HCPCS: 82043; 82570; 84439; 84443

== ENCOUNTER → 2023-04-07 | Outpatient (CLI) | payer OTHER ==
[2023-04-07 11:04] LABS: BASOPHILS ABSOLUTE AUTO 0.03 K/mm3 (0.00-0.23); BASOPHILS PERCENT AUTO 0 % (0-2); EOSINOPHILS ABSOLUTE AUTO 0.03 K/mm3 (0.00-0.68); EOSINOPHILS PERCENT AUTO 0 % (0-6); Hematocrit 34.9 % (33.0-51.0); Hemoglobin 10.3 g/dL (11.5-16.0); IMMATURE GRAN ABSOLUTE AUTO 0.03 K/mm3 (0.00-0.10); IMMATURE GRAN PERCENT AUTO 0 % (0-1); LYMPHOCYTES ABSOLUTE AUTO 0.59 K/mm3 (0.84-5.20); LYMPHOCYTES PERCENT AUTO 8 % (21-46); MONOCYTES PERCENT AUTO 12 % (4-13); Mean Corpuscular HGB 26.1 pg (26.0-34.0); Mean Corpuscular HGB Conc 29.5 g/dL (31.5-36.5); Mean Corpuscular Volume 89 fL (80-100); Mean Platelet Volume 9.2 fL (9.1-12.4); NEUTROPHILS ABSOLUTE AUTO 6.19 K/mm3 (1.96-9.15); NEUTROPHILS PERCENT AUTO 80 % (41-73); Platelet Count 205 K/mm3 (150-400); RDW Coefficient Variation 16.6 % (11.7-14.2); RDW Standard Deviation 53.7 fL (35.1-46.3); Red Blood Cell Count 3.94 M/mm3 (3.80-5.20); White Blood Cell Count 7.77 K/mm3 (4.00-11.30)
[2023-04-07 11:13] LABS: Albumin, Blood 3.2 g/dL (3.4-5.0); Albumin/Globulin Ratio 0.9 (0.8-1.8); Bilirubin, Total 0.4 mg/dL (0.1-1.0); Bun/Creatinine Ratio 11.8 (12.0-20.0); Calcium, Blood 8.4 mg/dL (8.5-10.1); Creatinine, Blood 0.93 mg/dL (0.40-1.00); Globulin, Blood 3.6 g/dL (2.2-4.0); Potassium, Blood 4.2 mmol/L (3.5-5.5); Total Protein, Blood 6.8 g/dL (6.4-8.2)
== END ==
LOC: LAB 10:56 → LAB SHORT 10:56
PROVIDERS: Physician Assistant Surgical
DX: R05.9 Cough, unspecified (principal)
CPT/HCPCS: 80053; 85025

== ENCOUNTER → 2024-01-15 | Outpatient (CLI) | payer OTHER ==
[2024-01-19 03:17] LABS: PANCREATIC ELASTASE,FECAL >800 ug/g (>=100)
== END ==
LOC: LAB SHORT 00:05 → LAB 00:05
PROVIDERS: Physician Assistant Medical
DX: R19.5 Other fecal abnormalities (principal)
CPT/HCPCS: 82653

== ENCOUNTER 2024-02-07 12:18 | Day surgery (SDC) | payer OTHER ==
[~2024-02-07] VITALS: Ht 170.2 cm; Wt 80.5 kg
[~2024-02-07 12:18] MED LIST changes: +ATOR80; +ATORVASTATIN CA80 MG; +Acetaminophen650 M1 PO; +Lactated Ringer's 1,000 ML IV ONE; +propofoL 50 ML IV ONE
[2024-02-07] MEDS ORDERED: Tambocor100 MG (12:54)
[2024-02-07] MEDS ORDERED: Lactated Ringer's 1,000 ML IV ONE (13:20)
[2024-02-07 15:20] VITALS: BP 140/68
== END 2024-02-07 15:10 | disposition home or self-care (01) ==
LOC: ORSCSDS 12:18
PROVIDERS: Internal Medicine Gastroenterology
PROC: 0DB78ZX Excision of Stomach, Pylorus, Via Natural or Artificial Opening Endoscopic, Diagnostic (ICD-10-PCS; principal; 2024-02-07 14:00)
PROC: 0DJD8ZZ Inspection of Lower Intestinal Tract, Via Natural or Artificial Opening Endoscopic (ICD-10-PCS; principal; 2024-02-07 14:00)
DX: K21.9 Gastro-esophageal reflux disease without esophagitis (principal); R19.5 Other fecal abnormalities; Z86.0100 Personal history of colon polyps, unspecified; I48.91 Unspecified atrial fibrillation; Z79.01 Long term (current) use of anticoagulants; G47.33 Obstructive sleep apnea (adult) (pediatric); J45.909 Unspecified asthma, uncomplicated; E78.5 Hyperlipidemia, unspecified; E11.22 Type 2 diabetes mellitus with diabetic chronic kidney disease; I12.9 Hypertensive chronic kidney disease with stage 1 through stage 4 chronic kidney disease, or unspecified chronic kidney disease; N18.30 Chronic kidney disease, stage 3 unspecified; Z79.899 Other long term (current) drug therapy; Z79.84 Long term (current) use of oral hypoglycemic drugs; Z79.4 Long term (current) use of insulin
CPT/HCPCS: 82947; 88305; 88342; J2704; J7120

== ENCOUNTER → 2024-02-08 | Outpatient (CLI) | payer OTHER ==
[~2024-02-08] MED LIST changes: -Lactated Ringer's 1,000 ML IV ONE; +Tambocor100 MG; -propofoL 50 ML IV ONE
[2024-02-08 15:26] LABS: Creatinine, Urine Random 36.3 mg/dL (27.00-270.00)
[2024-02-08 15:28] LABS: Microalb/Creat Ratio UR, Rand 39.945 mg/g (0.000-30.000); Microalbumin, Random Urine 14.5 mg/L (0.000-20.000)
== END ==
LOC: LAB SHORT 13:25 → LAB 13:25
PROVIDERS: Internal Medicine
DX: E11.69 Type 2 diabetes mellitus with other specified complication (principal)
CPT/HCPCS: 82043; 82570

== ENCOUNTER 2025-01-06 01:50 | Emergency (ER) | payer OTHER ==
[~2025-01-06] VITALS: Ht 170.2 cm; Wt 72.6 kg
[2025-01-06 02:46] LABS: BASOPHILS ABSOLUTE AUTO 0.02 K/mm3 (0.00-0.23); BASOPHILS PERCENT AUTO 0 % (0-2); EOSINOPHILS ABSOLUTE AUTO 0.08 K/mm3 (0.00-0.68); EOSINOPHILS PERCENT AUTO 1 % (0-6); Hematocrit 34.1 % (33.0-51.0); Hemoglobin 11.0 g/dL (11.5-16.0); IMMATURE GRAN ABSOLUTE AUTO 0.04 K/mm3 (0.00-0.10); IMMATURE GRAN PERCENT AUTO 0 % (0-1); LYMPHOCYTES ABSOLUTE AUTO 0.75 K/mm3 (0.84-5.20); LYMPHOCYTES PERCENT AUTO 8 % (21-46); MONOCYTES ABSOLUTE AUTO 1.14 K/mm3 (0.16-1.47); MONOCYTES PERCENT AUTO 13 % (4-13); Mean Corpuscular HGB Conc 32.3 g/dL (31.5-36.5); Mean Corpuscular Volume 93 fL (80-100); NEUTROPHILS ABSOLUTE AUTO 7.04 K/mm3 (1.96-9.15); NEUTROPHILS PERCENT AUTO 78 % (41-73); NRBC ABSOLUTE 0.00 K/mm3 (0.00-0.02); NRBC Auto 0.0 /100 WBC (0.0-0.2); Platelet Count 163 K/mm3 (150-400); RDW Coefficient Variation 12.3 % (11.7-14.2); RDW Standard Deviation 41.8 fL (35.1-46.3)
[2025-01-06 03:05] LABS: Alanine Aminotransfer (ALT/SGP 26.0 U/L (12-78); Albumin, Blood 3.3 g/dL (3.4-5.0); Albumin/Globulin Ratio 1.4 (0.8-1.8); Anion Gap 10.0 mmol/L (3-11); Aspartate Aminotrans (AST/SGOT 17.0 U/L (12-37); Bilirubin, Total 0.4 mg/dL (0.1-1.0); Blood Urea Nitrogen 27.0 mg/dL (8-24); CO2, Blood 23.0 mmol/L (21-32); Calcium, Blood 8.7 mg/dL (8.5-10.1); Chloride, Blood 109.0 mmol/L (98-108); Creatinine, Blood 0.94 mg/dL (0.40-1.00); Globulin, Blood 2.4 g/dL (2.2-4.0); Glucose, Blood 202.0 mg/dL (70-99); Potassium, Blood 4.3 mmol/L (3.5-5.5); Sodium, Blood 138.0 mmol/L (136-145); Total Protein, Blood 5.7 g/dL (6.4-8.2)
[2025-01-06] MEDS ORDERED: Ketorolac Tromethamine 15mg Vial IV ONE (03:50)
[2025-01-06] MEDS ORDERED: NS 1,000 ML IV SCH (03:50)
[2025-01-06 04:08] LABS: Source, Urine Clean Catch
[2025-01-06 04:12] LABS: Bilirubin, Urine Neg (Neg); Glucose Qualitative, Urine 4+ (Neg); Ketones, Urine Neg (Neg); Leukocyte Esterase, Urine 1+ (Neg); Protein, Urine 1+ (Neg); Specific Gravity, Urine 1.015 (1.003-1.022); Urobilinogen, Urine NORM (Normal)
[2025-01-06 04:16] LABS: Magnesium, Blood 1.7 mg/dL (1.6-2.4); Phosphorus, Blood 3.2 mg/dL (2.5-4.9); Thyroid Stimulating Hormone 0.281 uIU/mL (0.360-4.800)
[2025-01-06 04:27] LABS: Color, Urine Yellow (P-Yellow)
[2025-01-06 04:28] LABS: Red Blood Cells, Urine 0-2 /hpf (0-2)
[2025-01-06] MEDS ORDERED: HYDR1TAB94 PO (09:23)
[2025-01-06 14:42] VITALS: BP 153/57
== END 2025-01-06 14:26 | disposition home or self-care (01) ==
LOC: ER 01:50
PROVIDERS: Emergency Medicine
DX: S82.301A Unspecified fracture of lower end of right tibia, initial encounter for closed fracture (principal); S82.831A Other fracture of upper and lower end of right fibula, initial encounter for closed fracture; I10 Essential (primary) hypertension; E78.00 Pure hypercholesterolemia, unspecified; E11.9 Type 2 diabetes mellitus without complications; W01.0XXA Fall on same level from slipping, tripping and stumbling without subsequent striking against object, initial encounter; Z79.4 Long term (current) use of insulin; Z79.82 Long term (current) use of aspirin; Z79.84 Long term (current) use of oral hypoglycemic drugs; Z79.899 Other long term (current) drug therapy; Z88.0 Allergy status to penicillin; Z88.1 Allergy status to other antibiotic agents; Z88.2 Allergy status to sulfonamides
CPT/HCPCS: 29515; 73610; 80053; 81001; 83735; 84100; 84443; 84484; 85025; 87077; 87086; 87186; 93005; 93010; 96374-59; 99284-25; A6590; J1885; J7030

== ENCOUNTER 2025-01-06 18:40 | Observation (INO) | payer OTHER ==
[~2025-01-06] VITALS: Ht 170.2 cm; Wt 77.1 kg
[2025-01-07] MEDS ORDERED: MetFORMIN HCl 500 mg PO ONE (11:55)
[2025-01-07 17:49] LABS: Anion Gap 8.0 mmol/L (3-11); Blood Urea Nitrogen 25.0 mg/dL (8-24); CO2, Blood 24.0 mmol/L (21-32); Calcium, Blood 8.6 mg/dL (8.5-10.1); Chloride, Blood 107.0 mmol/L (98-108); Creatinine, Blood 0.89 mg/dL (0.40-1.00); Glucose, Blood 346.0 mg/dL (70-99); Potassium, Blood 4.7 mmol/L (3.5-5.5); Sodium, Blood 134.0 mmol/L (136-145)
[2025-01-07] MEDS ORDERED: FLU VACC TS2025(65UP)/MF59C/PF 45 MCG/0.5 ML SYRINGE IM SCH (18:20)
[2025-01-07] MEDS ORDERED: NS 1,000 ML IV SCH (18:30)
[2025-01-07] MEDS ORDERED: CefTRIAXone Sodium 1,000 MG in NS 100 ML IV SCH (19:00)
[2025-01-07 20:16] VITALS: BP 137/58
[2025-01-07] MEDS ORDERED: Lactobacil 2-S.Thermo-Bifido 1 1 Cap PO SCH (21:00)
[2025-01-08] MEDS ORDERED: Insulin Human Lispro 100 Units/ML 3ML Syringe SC SCH
--- NOTE | 2025-01-08 05:06 | NUR ---
SHIFT SUMMARY 79 YR F ADMITTED TO SURGICAL FLOOR AT APPROX 2015 THIS SHIFT. FULL CODE. UPON ARRIVAL A PUREWIK WAS PLACED PT IS IMMOBILE AT THIS TIME. PT FELT THIS WAS A GREAT IDEA FOR HER. SHE STATES THAT LONG SHE IS NOT MOVING HER PAIN IS UNDER CONTROL, BUT ANY MOVEMENT OF HER R LEG CAUSES A GREAT DEAL OF PAIN. SHE WAS MEDICATED FOR PAIN ONCE THIS SHIFT PER EMAR. SHE HAS BEEN NPO SINCE MIDNIGHT IN ANTICIPATION OF A SURGICAL CONSULT THIS MORNING. PT IS ULTIMATELY HOPING FOR SNF PLACEMENT. SHE IS ABLE TO COMMUNICATE HER NEEDS AND BED IS IN LOW POSITION WITH CALL LIGHT IN REACH.
[2025-01-08 05:54] LABS: Hematocrit 29.2 % (33.0-51.0); Hemoglobin 9.1 g/dL (11.5-16.0); Mean Corpuscular HGB Conc 31.2 g/dL (31.5-36.5); Mean Corpuscular Volume 95 fL (80-100); NRBC ABSOLUTE 0.00 K/mm3 (0.00-0.02); NRBC Auto 0.0 /100 WBC (0.0-0.2); Platelet Count 147 K/mm3 (150-400); RDW Coefficient Variation 12.5 % (11.7-14.2); RDW Standard Deviation 42.6 fL (35.1-46.3)
[2025-01-08 06:12] VITALS: BP 149/66
[2025-01-08 06:34] LABS: Anion Gap 9.0 mmol/L (3-11); Blood Urea Nitrogen 23.0 mg/dL (8-24); CO2, Blood 25.0 mmol/L (21-32); Calcium, Blood 8.9 mg/dL (8.5-10.1); Chloride, Blood 109.0 mmol/L (98-108); Creatinine, Blood 0.84 mg/dL (0.40-1.00); Glucose, Blood 244.0 mg/dL (70-99); Potassium, Blood 4.7 mmol/L (3.5-5.5); Sodium, Blood 138.0 mmol/L (136-145)
[2025-01-08 08:10] VITALS: BP 136/60
--- NOTE | 2025-01-08 10:56 | NUR ---
Pt. is awake in bed and welcomed my visit. Pt. is pleasant but displays evidence of appropriate emotion. This motor operator knows this Pt. as the Pts. spouse passed at this hospital one week ago. Facilitated an update and listened with pastoral care and empathy. Pt. displayed evidence of real emotion, and then verbalized her plans moving forward. Prayed with the Pt. Pt. verbalized gratitude for the spiritual care visit.
--- NOTE | 2025-01-08 13:45 | NUR ---
FRACTURE BOOT PLACED ON PATIENT PER DR. KENNEY REQUEST. PT REPORTS COMFORTABLE AT THIS TIME. PLAN IS FOR DISCHARGE TO SNF AND FOLLOW UP WITH SURGEON IN 2 WEEKS.
--- NOTE | 2025-01-08 15:18 | NUR ---
DISCHARGE NOTE PT A/OX4. ABLE TO MAKE NEEDS KNOWN, VOIDING WELL. TOLERATING INTAKE. LEFT W/ PERSONAL BELONGINGS. ESCORTED TO [facility] VIA WC.
== END 2025-01-08 15:19 ==
LOC: ER 18:40 → SURS 18:41 → ER 01-07 18:41 → SURS 01-07 18:41 → MEDS 01-08 13:51 → SURS 01-08 15:19
PROVIDERS: Emergency Medicine; Nurse Practitioner Acute Care; ADMIT Internal Medicine
DX: S82.844A Nondisplaced bimalleolar fracture of right lower leg, initial encounter for closed fracture (principal); N39.0 Urinary tract infection, site not specified; E78.00 Pure hypercholesterolemia, unspecified; I48.0 Paroxysmal atrial fibrillation; I10 Essential (primary) hypertension; E11.9 Type 2 diabetes mellitus without complications; J84.9 Interstitial pulmonary disease, unspecified; K21.9 Gastro-esophageal reflux disease without esophagitis; Z79.01 Long term (current) use of anticoagulants; Z79.4 Long term (current) use of insulin; Z79.82 Long term (current) use of aspirin; Z79.899 Other long term (current) drug therapy; Z88.0 Allergy status to penicillin; Z88.1 Allergy status to other antibiotic agents; Z88.2 Allergy status to sulfonamides; S82.831A Other fracture of upper and lower end of right fibula, initial encounter for closed fracture; W01.0XXA Fall on same level from slipping, tripping and stumbling without subsequent striking against object, initial encounter; Z79.84 Long term (current) use of oral hypoglycemic drugs
CPT/HCPCS: 29515; 36415; 73610; 80048; 80053; 81001; 82947; 83735; 84100; 84443; 84484; 85025; 85027; 87077; 87086; 87186; 93005; 93010; 96361; 96365; 96374-59; 97162; 97165; 97530; 99284-25; 99285-25; A6590; A9270; G0378; J0696; J1885; J7030; J7517